=== PATIENT | female | born 1995 | race Caucasian/White ===

== ENCOUNTER 2018-04-03 10:46 | Emergency (ER) | payer SELFPAY ==
[2018-04-03] MEDS ORDERED: PNV1TAB.2 (11:00)
[2018-04-03] MEDS ORDERED: NS(*) 0.9% 1000 ML BAG 1,000 ML IV ONE (11:06)
--- NOTE | 2018-04-03 11:06 | ER Report ---
History and Physical Time Seen By MD: 10:55 HPI/ROS CHIEF COMPLAINT: Right lower quadrant abdominal pain for the past 24 hours HISTORY OF PRESENT ILLNESS: Patient is a 23-year-old female here with complaints of right lower quadrant abdominal pain for the past 24 hours. Patient reports having initial generalized abdominal pain and bloating sensation which migrated to the right lower quadrant. Patient denies fevers but does admit to intermitt ent chills, nausea, lack of appetite. Patient is afebrile, hemodynamically stable at time of evaluation. Denies prior history of abdominal surgeries. Patient is tolerating oral intake and had liquids this morning. REVIEW OF SYSTEMS: Constitutional: No fever, + chills. Eyes: No discharge. ENT: No sore throat. Cardiovascular: No chest pain, no palpitations. Respiratory: No cough, no shortness of breath. Gastrointestinal: + RLQ abdominal pain, no vomiting, + nausea Genitourinary: No hematuria. Musculoskeletal: No back pain. Skin: No rashes. Neurological: No headache. Allergies: Coded Allergies: adhesive (Verified Allergy, Intermediate, 04/03/18) Home Meds Reported Medications Pnv No.115/Iron Fumarate/Fa ( 19 CHEWABLE TABLET) 1 Each Tab.chew 04/03/18 Constitutional Vital Sign - Last 24 Hours 04/03/18 04/03/18 04/03/18 04/03/18 10:46 10:53 10:53 11:16 Temp 97.7 Pulse ??? 58 65 Resp 16 B/P (MAP) 144/91 (108) 144/91 Pulse Ox 97 95 O2 Delivery Room Air 04/03/18 04/03/18 04/03/18 04/03/18 11:30 12:00 12:30 13:00 B/P (MAP) 99/68 (78) 104/55 (71) 95/58 (70) 95/63 (74) 04/03/18 13:18 B/P (MAP) 98/63 (75) Physical Exam General Appearance: The patient is alert, has no immediate need for airway protection and no signs of toxicity. No acute distress Eyes: Pupils equal and round no pallor or injection. ENT, Mouth: Mucous membranes are moist. Respiratory: There are no retractions, lungs are clear to auscultation. Cardiovascular: Regular rate and rhythm. Gastrointestinal: Abdomen is soft and + tender in the RLQ, no masses, bowel sounds normal. Neurological: No focal deficits Skin: Warm and dry, no rashes. Musculoskeletal: Neck is supple non tender. Extremities are nontender, nonswollen and have full range of motion. DIFFERENTIAL DIAGNOSIS: After history and physical exam differential diagnosis was considered for abdominal pain including but not limited to appendicitis, cholecystitis, gastritis and urinary tract infection. Medical Decision Making Data Points Result Diagram: 04/03/18 1059 04/03/18 1059 Laboratory Hematology Test 04/03/18 10:59 Red Blood Count 4.74 M/uL (4.17-5.56) Mean Corpuscular Volume 90.2 fL (80.0-96.0) Mean Corpuscular Hemoglobin 29.9 pg (26.0-33.0) Mean Corpuscular Hemoglobin Concent 33.1 g/dL (32.0-36.0) Red Cell Distribution Width 12.3 % (11.5-14.5) Mean Platelet Volume 7.6 fL (7.2-11.1) Neutrophils (%) (Auto) 55.3 % (39.4-72.5) Lymphocytes (%) (Auto) 31.4 % (17.6-49.6) Monocytes (%) (Auto) 9.2 % (4.1-12.4) Eosinophils (%) (Auto) 3.7 % (0.4-6.7) Basophils (%) (Auto) 0.4 % (0.3-1.4) Nucleated RBC Relative Count (auto) 0.0 /100WBC Neutrophils # (Auto) 4.7 K/uL (2.0-7.4) Lymphocytes # (Auto) 2.6 K/uL (1.3-3.6) Monocytes # (Auto) 0.8 K/uL (0.3-1.0) Eosinophils # (Auto) 0.3 K/uL (0.0-0.5) Basophils # (Auto) 0.0 K/uL (0.0-0.1) Nucleated RBC Absolute Count (auto) 0.00 K/uL Urine Color Yellow Urine Clarity Slightly-cloudy Urine pH 5.0 pH (4.8-9.5) Urine Specific Burwell 1.023 Urine Protein Negative mg/dL (NEGATIVE) Urine Glucose (UA) Negative mg/dL (NEGATIVE) Urine Ketones Negative mg/dL (NEGATIVE) Urine Blood Negative (NEGATIVE) Urine Nitrite Negative (NEGATIVE) Urine Bilirubin Negative (NEGATIVE) Urine Urobilinogen Negative mg/dL (0.2-1.9) Urine Leukocyte Esterase Trace (NEGATIVE) Urine RBC None /HPF (0-2/HPF) Urine WBC 2 /HPF (0-5/HPF) Urine Squamous Epithelial Cells Many /LPF (</=FEW) Urine Bacteria Negative /HPF (NONE-FEW) Urine Mucus Few /HPF (NONE-FEW) Urine HCG, Qualitative Negative (NEGATIVE) Sodium Level 140 mmol/L (137-145) Potassium Level 3.9 mmol/L (3.5-5.0) Chloride Level 108 mmol/L (98-107) Carbon Dioxide Level 23 mmol/L (22-31) Blood Urea Nitrogen 13 mg/dl (7-18) Creatinine 0.70 mg/dl (0.52-1.04) Glomerular Filtration Rate Calc > 60.0 Random Glucose 81 mg/dl (75-110) Calcium Level 9.0 mg/dl (8.4-10.2) Total Bilirubin 0.5 mg/dl (0.2-1.3) Aspartate Amino Transf (AST/SGOT) 25 U/L (0-35) Alanine Aminotransferase (ALT/SGPT) 27 U/L (0-56) Alkaline Phosphatase 76 U/L (0-126) C-Reactive Protein < 0.5 mg/dl (<1.0) Total Protein 8.0 g/dl (6.3-8.2) Albumin 4.4 g/dl (3.5-5.0) Lipase 79 U/L (23-300) Chemistry Test 04/03/18 10:59 White Blood Count 8.4 k/uL (4.5-11.0) Red Blood Count 4.74 M/uL (4.17-5.56) Hemoglobin 14.2 g/dL (12.0-16.0) Hematocrit 42.8 % (34.0-47.0) Mean Corpuscular Volume 90.2 fL (80.0-96.0) Mean Corpuscular Hemoglobin 29.9 pg (26.0-33.0) Mean Corpuscular Hemoglobin Concent 33.1 g/dL (32.0-36.0) Red Cell Distribution Width 12.3 % (11.5-14.5) Platelet Count 422 K/uL (150-450) Mean Platelet Volume 7.6 fL (7.2-11.1) Neutrophils (%) (Auto) 55.3 % (39.4-72.5) Lymphocytes (%) (Auto) 31.4 % (17.6-49.6) Monocytes (%) (Auto) 9.2 % (4.1-12.4) Eosinophils (%) (Auto) 3.7 % (0.4-6.7) Basophils (%) (Auto) 0.4 % (0.3-1.4) Nucleated RBC Relative Count (auto) 0.0 /100WBC Neutrophils # (Auto) 4.7 K/uL (2.0-7.4) Lymphocytes # (Auto) 2.6 K/uL (1.3-3.6) Monocytes # (Auto) 0.8 K/uL (0.3-1.0) Eosinophils # (Auto) 0.3 K/uL (0.0-0.5) Basophils # (Auto) 0.0 K/uL (0.0-0.1) Nucleated RBC Absolute Count (auto) 0.00 K/uL Urine Color Yellow Urine Clarity Slightly-cloudy Urine pH 5.0 pH (4.8-9.5) Urine Specific Burwell 1.023 Urine Protein Negative mg/dL (NEGATIVE) Urine Glucose (UA) Negative mg/dL (NEGATIVE) Urine Ketones Negative mg/dL (NEGATIVE) Urine Blood Negative (NEGATIVE) Urine Nitrite Negative (NEGATIVE) Urine Bilirubin Negative (NEGATIVE) Urine Urobilinogen Negative mg/dL (0.2-1.9) Urine Leukocyte Esterase Trace (NEGATIVE) Urine RBC None /HPF (0-2/HPF) Urine WBC 2 /HPF (0-5/HPF) Urine Squamous Epithelial Cells Many /LPF (</=FEW) Urine Bacteria Negative /HPF (NONE-FEW) Urine Mucus Few /HPF (NONE-FEW) Urine HCG, Qualitative Negative (NEGATIVE) Glomerular Filtration Rate Calc > 60.0 Calcium Level 9.0 mg/dl (8.4-10.2) Total Bilirubin 0.5 mg/dl (0.2-1.3) Aspartate Amino Transf (AST/SGOT) 25 U/L (0-35) Alanine Aminotransferase (ALT/SGPT) 27 U/L (0-56) Alkaline Phosphatase 76 U/L (0-126) C-Reactive Protein < 0.5 mg/dl (<1.0) Total Protein 8.0 g/dl (6.3-8.2) Albumin 4.4 g/dl (3.5-5.0) Lipase 79 U/L (23-300) Urinalysis Test 04/03/18 10:59 Urine Color Yellow Urine Clarity Slightly-cloudy Urine pH 5.0 pH (4.8-9.5) Urine Specific Burwell 1.023 Urine Protein Negative mg/dL (NEGATIVE) Urine Glucose (UA) Negative mg/dL (NEGATIVE) Urine Ketones Negative mg/dL (NEGATIVE) Urine Blood Negative (NEGATIVE) Urine Nitrite Negative (NEGATIVE) Urine Bilirubin Negative (NEGATIVE) Urine Urobilinogen Negative mg/dL (0.2-1.9) Urine Leukocyte Esterase Trace (NEGATIVE) Urine RBC None /HPF (0-2/HPF) Urine WBC 2 /HPF (0-5/HPF) Urine Squamous Epithelial Cells Many /LPF (</=FEW) Urine Bacteria Negative /HPF (NONE-FEW) Urine Mucus Few /HPF (NONE-FEW) Urine HCG, Qualitative Negative (NEGATIVE) EKG/Imaging Imaging EXAMINATION: CT Abdomen and Pelvis With Contrast 04/03/2018 11:06 AM HISTORY: RLQ abd pain TECHNIQUE: Spiral scan was through the abdomen and pelvis during injection of nonionic iodinated intravenous contrast. Contrast: 75 mL of IV Isovue 370. One of the following dose optimization techniques was utilized in the performance of this exam: Automated exposure control; adjustment of the mA and/or kV according to the patient's size; or use of an iterative reconstruction technique. Specific details can be referenced in the facility's radiology CT exam operational policy. COMPARISON STUDIES: none. FINDINGS: Liver / biliary: Small gallstones in the gallbladder. No wall thickening or clear pericholecystic inflammation/edema. Negative liver. Pancreas: negative Spleen: Incidental small accessory splenule below the hilus. Adrenal glands: negative Kidneys / retroperitoneum: Symmetric cortical enhancement. No stone or obstruction. Pelvic structures: Uterus is slightly physiologically deviated towards the right. Dominant but functional appearing 1.7 cm left ovarian follicle. Minimal left adnexal varices typically are incidental. No right ovarian or adnexal pathology evident by CT. Bowel / peritoneum / mesenteries: Normal appendix. No ileocecal area inflammatory change. No findings of colitis or bowel obstruction or inflamma tion. No ascites or free air. Vessels: negative Musculoskeletal / Body wall: Self Propelled Hot Mix Roller Operator image shows a navel piercing which was removed prior to the CT. The patient also has a pierced nipple at least on the left and apparently a genital piercing as well. Lymph node assessment: negative Lower chest: negative IMPRESSION: 1. Cholecystolithiasis. No clear CT findings of cholecystitis or biliary obstruction. 2. Normal appendix. No acute ileocecal area or other right lower quadrant finding ED Course/Re-evaluation ED Course Patient is a 23-year-old female here with complaints of right lower quadrant abdominal pain which migrated from generalized discomfort over the past 24 hours prompting evaluation. Labs were unremarkable with no leukocytosis, CRP was n egative. Patient was given IV fluid hydration, Toradol and a CT abdomen and pelvis was completed which showed no signs of appendicitis. Patient was advised to follow-up with her PCP in the next 2 days or return promptly should develop fevers, worsening pain, by mouth intolerance. Patient is afebrile, hemodynamically stable at time of discharge. Decision to Disposition Date: Apr 03, 2018 Decision to Disposition Time: 13:07 Depart Departure Latest Vital Signs Vital Signs Date Time Temp Pulse Resp B/P (MAP) Pulse Ox O2 Delivery O2 Flow Rate FiO2 04/03/18 13:18 98/63 (75) 04/03/18 11:16 65 95 04/03/18 10:53 97.7 16 Room Air Impression: Primary Impression: Abdominal pain Condition: Improved Disposition: HOME OR SELF-CARE Patient Instructions: Abdominal Pain (ED) Additional Instructions: Please drink plenty of water. You may take Tylenol or ibuprofen as needed for pain control. You did have a large stool burden and he may consider taking Colace or MiraLAX as needed for constipation. Please follow-up with your family doctor in the next 2 days for follow-up evaluation care. Please return promptly if you develop fevers, inability to keep down food or fluids, worsening pain, blood in the urine or stools. LUDWIN SONI DO Apr 03, 2018 11:06
[2018-04-03] MEDS ORDERED: KETOROLAC 30 MG/ML VIAL IVP ONE (11:10)
[2018-04-03 11:16] LABS: PLATELET COUNT, AUTOMATED 422 K/uL (150-450)
[2018-04-03] MEDS ORDERED: IOPAMIDOL 76% 50 ML INFUS BTL 100 ML ONE (11:28)
--- NOTE | 2018-04-03 12:54 | RADIOLOGY IMAGING REPORT ---
FACILITY: [facility] - [place] PATIENT NAME: Bharati Suarez : 1995 MR: [id number] V: [id number] EXAM DATE: ORDERING PHYSICIAN: LUDWIN SONI TECHNOLOGIST: Location: [facility] - [place] Patient: Bharati Suarez : 1995 Visit/Account:[id number] Date of Sevice: 04/03/2018 EXAMINATION: CT Abdomen and Pelvis With Contrast 04/03/2018 11:06 AM HISTORY: RLQ abd pain TECHNIQUE: Spiral scan was through the abdomen and pelvis during injection of nonionic iodinated in travenous contrast. Contrast: 75 mL of IV Isovue 370. One of the following dose optimization techniques was utilized in the performance of this exam: Autom ated exposure control; adjustment of the mA and/or kV according to the patient's size; or use of an i terative reconstruction technique. Specific details can be referenced in the facility's radiology C T exam operational policy. COMPARISON STUDIES: none. FINDINGS: Liver / biliary: Small gallstones in the gallbladder. No wall thickening or clear pericholecystic in flammation/edema. Negative liver. Pancreas: negative Spleen: Incidental small accessory splenule below the hilus. Adrenal glands: negative Kidneys / retroperitoneum: Symmetric cortical enhancement. No stone or obstruction. Pelvic structures: Uterus is slightly physiologically deviated towards the right. Dominant but fu nctional appearing 1.7 cm left ovarian follicle. Minimal left adnexal varices typically are incident al. No right ovarian or adnexal pathology evident by CT. Bowel / peritoneum / mesenteries: Normal appendix. No ileocecal area inflammatory change. No findin gs of colitis or bowel obstruction or inflammation. No ascites or free air. Vessels: negative Musculoskeletal / Body wall: Echocardiograph Tech image shows a navel piercing which was removed prior to the CT. T he patient also has a pierced nipple at least on the left and apparently a genital piercing as well. Lymph node assessment: negative Lower chest: negative IMPRESSION: 1. Cholecystolithiasis. No clear CT findings of cholecystitis or biliary obstruction. 2. Normal appendix. No acute ileocecal area or other right lower quadrant finding Report Dictated By: Aleksandar Angulo MD at 04/03/2018 12:44 PM Report E-Signed By: Aleksandar Angulo MD at 04/03/2018 12:50 PM [id number]
[2018-04-03 13:18] VITALS: BP 98/63
== END 2018-04-03 13:25 | disposition home or self-care (01) ==
LOC: ER 11:28
DX: R10.31 Right lower quadrant pain (principal); K80.20 Calculus of gallbladder without cholecystitis without obstruction
CPT/HCPCS: 74177; 81001; 81025; 83690; 85025; 86140; 96361; 96374; 99284; J1885; J7030; Q9967; 82040; 82247; 82310; 82374; 82435; 82565; 82947; 84075; 84132; 84155; 84295; 84450; 84460; 84520